=== PATIENT | male | born 1970 | race Caucasian/White ===

== ENCOUNTER 2019-10-07 11:51 | Outpatient (CLI) | payer OTHER | END 2019-10-07 20:52 | disposition home or self-care (01) | LOC: SLB 11:51 | PROVIDERS: ATTEND Family Medicine | DX: L29.9 Pruritus, unspecified (principal) | CPT/HCPCS: 87081 ==

== ENCOUNTER 2019-10-11 10:07 | Outpatient (CLI) | payer OTHER ==
[2019-10-11 10:38] LABS: BASOPHILS # (AUTO) 0.1 K/uL (0.0-0.2); BASOPHILS % (AUTO) 0.8 % (0.0-2.0); EOSINOPHILS # (AUTO) 0.1 K/uL (0.0-0.4); EOSINOPHILS % (AUTO) 2.2 % (0.0-4.0); HEMOGLOBIN 15.1 g/dL (14.0-18.0); LYMPHOCYTES % (AUTO) 32.2 % (20.5-51.5); MEAN CORPUSCULAR HEMOGLOBIN 29 pg (27-31); MEAN CORPUSCULAR HGB CONC 34 % (32-36); MEAN CORPUSCULAR VOLUME 88 fL (79.0-98.0); MONOCYTES # (AUTO) 0.4 K/uL (0.0-1.0); MONOCYTES % (AUTO) 6.4 % (1.7-9.3); NEUTROPHILS # (AUTO) 3.6 K/uL (1.8-7.7); NEUTROPHILS % (AUTO) 58.4 % (40.0-70.0); PLATELET COUNT (AUTO) 222 K/uL (130-430); RED BLOOD CELL COUNT(AUTO) 5.13 MIL/uL (4.2-6.2); RED CELL DISTRIBUTION WIDTH 13.4 % (9.0-15.0); WHITE BLOOD COUNT (AUTO) 6.1 K/uL (4.8-10.8)
[2019-10-11 11:10] LABS: CALCIUM 8.7 mg/dL (8.4-11.0); CREATININE 1.31 mg/dL (0.55-1.30); THYROID STIMULATING HORMONE 3.05 uIu/mL (0.34-4.82); TOTAL BILIRUBIN 0.8 mg/dL (0.0-1.0)
== END 2019-10-11 21:11 | disposition home or self-care (01) ==
LOC: SLB 10:07
PROVIDERS: ATTEND Family Medicine
DX: L29.9 Pruritus, unspecified (principal)
CPT/HCPCS: 36415; 80053; 80061; 84443-TC; 85025

== ENCOUNTER 2020-04-17 10:44 | Outpatient (CLI) | payer OTHER ==
[2020-04-17 12:08] LABS: CALCIUM 8.6 mg/dL (8.4-11.0); CREATININE 1.32 mg/dL (0.55-1.30); FREE T4 (FREE THYROXINE) 0.8 ng/dL (0.6-1.6); PHOSPHORUS 2.9 mg/dL (2.7-4.5); POTASSIUM 4.1 mmol/L (3.5-5.1); THYROID STIMULATING HORMONE 2.32 uIu/mL (0.34-4.82)
[2020-04-18 08:06] LABS: PTH, INTACT 27 pg/mL (15-65); T3 UPTAKE 27 % (24-39)
== END 2020-04-17 20:43 | disposition home or self-care (01) ==
LOC: SLB 10:44
PROVIDERS: ATTEND General Practice
DX: R79.9 Abnormal finding of blood chemistry, unspecified (principal)
CPT/HCPCS: 36415; 80048; 82330; 83519; 83735-TC; 83970; 84100-TC; 84439; 84443-TC; 84479

== ENCOUNTER 2020-05-10 14:27 | Outpatient (CLI) | payer OTHER | END 2020-05-10 20:51 | disposition home or self-care (01) | LOC: SUS 14:27 | PROVIDERS: ATTEND General Practice | DX: E87.0 Hyperosmolality and hypernatremia (principal) | CPT/HCPCS: 76770 ==

== ENCOUNTER 2020-08-22 11:35 | Outpatient (CLI) | payer OTHER ==
[2020-08-22 11:58] LABS: HEMATOCRIT 43.9 % (36-54); HEMOGLOBIN 15.1 g/dL (14.0-18.0)
[2020-08-22 12:19] LABS: ALBUMIN 4.2 g/dL (3.4-4.8); CALCIUM 8.6 mg/dL (8.4-11.0); CREATININE 1.34 mg/dL (0.55-1.30); POTASSIUM 4.3 mmol/L (3.5-5.1); TOTAL BILIRUBIN 0.8 mg/dL (0.0-1.0)
== END 2020-08-22 21:23 | disposition home or self-care (01) ==
LOC: SLB 11:35
PROVIDERS: ATTEND General Practice
DX: J45.41 Moderate persistent asthma with (acute) exacerbation (principal); R25.1 Tremor, unspecified
CPT/HCPCS: 36415; 80053; 85018